=== PATIENT | female | born 1965 | race Two or more races ===

== ENCOUNTER 2023-12-31 16:40 | Emergency (ER) | payer OTHER, SELFPAY ==
[2023-12-31 16:49] VITALS: BP 184/97
--- NOTE | 2023-12-31 18:47 | ED.GENMED ---
History of Present Illness
General
Chief Complaint: Skin Surface Trauma
Time Seen by Provider: 12/31/23 18:44
History of Present Illness
History of Present Illness:
TIME OF INITIAL ENCOUNTER: 6:50 PM
HPI: Patient had a crush injury related to window going up crushing the tip of the left ring fingertip. She went to urgent care initially and it was recommended she come in here for further evaluation.
EXAM:
GENERAL: Well appearing in no distress
HEENT: Moist oral mucosa
NEUROLOGIC: Excellent strength all extremities, no obvious coordination deficits
PSYCHIATRIC: Appropriate mental status, normal insight and judgement
EXTREMITIES: Left fourth digit: Her ring has been removed, there is a 1.5 cm horizontal laceration through the nailbed at the midpoint, the cuticle is not interrupted. The laceration extends to the radial aspect.
SKIN: No rash, no lesions
NUMBER AND COMPLEXITY OF PROBLEMS ADDRESSED AT THE ENCOUNTER
� Chronic conditions affecting care: Has had hysterectomy
� Acute Exacerbation and/or Progression of Chronic Illness: This is an acute problem
� Differential Diagnosis includes: Laceration, nailbed injury, finger fracture
AMOUNT AND/OR COMPLEXITY OF DATA TO BE REVIEWED AND ANALYZED
� I performed an independent evaluation of and my interpretation is:
EKG:
CT:
X-rays: X-ray shows comminuted fracture of the tip of the distal phalanx
Laboratory Studies:
Other:
� Review of other/old records: No old records available for review
� Clinical information was obtained by an independent historian: I spoke to family including sister at bedside
� Prescriptions/Medications Considered but not given:
� Further testing considered but not performed:
RISK OF COMPLICATIONS AND/OR MORBIDITY OR MORTALITY OF PATIENT MANAGEMENT
� Social determinants of health affecting care: Is flying to [place] in 2 days
� Discussion with other providers:
� Escalation of care including admission/observation vs risk of discharge considered: I placed a ring block to the affected digit. I then copiously irrigated the wound and placed ChloraPrep. I then recommended and considered
removing the distal aspect of the nailbed to help facilitate closure however the patient and the patient's sister refused. I then placed a suture to the radial aspect of the laceration next to the nailbed. I attempted to place a stitch and even
used electrocautery to go through the nailbed however this was unsuccessful.
ANY OTHER UPDATES:
I reassessed the patient multiple times and I personally placed a splint that was in an extension position to help keep the soft tissue close together
Phy Exam
Physical Exam
Physical Exam:
See HPI
Course
Orders/Labs/Results
Orders:
Orders
12/31/23 16:51
Finger(s)/Thumb 2 View Lt [CR Finger(s)/thumb Min 2 Vw Lt] Urgent
Comment:
Reason For Exam: pain, trauma
Indicate Which Finger:: Ring Finger
12/31/23 20:04
Cephalexin Monohydrate [Keflex] 500 mg PO NOW STA
Vital Signs
Initial and Last Documented VS:
Initial Vital Signs
Temp Pulse Resp BP Pulse Ox
98.3 F 91 18 184/97 96
12/31/23 16:49 12/31/23 16:49 12/31/23 16:49 12/31/23 16:49 12/31/23 16:49
Last Documented Vital Signs
Temp Pulse Resp BP Pulse Ox
98.3 F 91 18 184/97 96
12/31/23 16:49 12/31/23 16:49 12/31/23 16:49 12/31/23 16:49 12/31/23 16:49
Procedures
Laceration Closure
Left Distal Fourth Finger:
Size of Wound in cm: 1.5
Description of Wound Edges: ragged
Preparation: cleaned with saline
Anesthesia: 1% Lidocaine
Revision/Debridement: routine- no revision
Wound exploration: explored to base- no FB
Type of Closure: single layer closure
Skin Closure Material: 4-0 nylon
Number of sutures: 1
Digital Block
Location of injection for digital block: base of digit
Indiction for Digital Block: anesthesia for exam
Type of anesthesia: 1% Lidocaine w/o EPI
Complications: none- good anesthesia
Nail Trepanation/Felon
Method of Drainage: nail cauterized
Sterile dressing applied: Yes
Finger splint applied: Yes
*Critical Care Note
Total Time (30-74mins, 75-104mins- exclusive of procedures): Not Applicable
ED Attending Note
-
Portions of this chart may have been created with voice recognition software.� Occasional wrong word or��sound alike� substitutions may have occurred due to the inherent limitations of voice recognition software.
Discharge Plan
Departure
Patient Disposition: Home (Routine Discharge)
Date of Disposition: 12/31/23
Time of Disposition: 20:04
Patient with high blood pressure during this ER visit?: Yes
Discharge Problem:
Nailbed laceration, finger
Instructions: Common Finger Injuries ED, BLOOD PRESSURE
Prescriptions:
New
cephalexin 500 mg capsule
500 mg PO BID Qty: 10 0RF
Referrals:
Thien Borjas MD [Family Provider] -
Higinio Corrigan MD [Active] - Tomorrow
Activity Restrictions/Additional Instructions:
I recommend that you leave the dressing and splint on through Thursday morning. I recommend that you place a new dressing but try to keep the splint in place. We have given you an additional splint since you will be away. When you change the
dressing, try to keep the finger from moving much to help the healing process. It is currently in a good position. I was unable to place a stitch into the nailbed due to the nail as you did not want me to remove the nail. I did place a stitch
next to the nail. At approximately the 2-week ron, I recommend that you cut the stitch out with scissors or you could go to an urgent care in [facility]. Next dose of antibiotics tomorrow morning. I have given you the contact information for local
orthopedist. The x-rays show comminuted fracture to the total aspect of the finger.
Interventions
Interventions:
*Risk Screen - Suicide Last Done: 12/31/23 17:14
*General Assessment Last Done: 12/31/23 17:14
*Neglect/Abuse Screening Last Done: 12/31/23 17:28
ED- Fall Risk Assessment Last Done: 12/31/23 17:31
*ED COVID-19 Vaccine History Last Done: 12/31/23 17:14
ED-Skin Assessment Last Done: 12/31/23 17:30
Discharge Date and Time
Print Language: FAROESE
[2023-12-31] MEDS: KEFLEX 500 MG PO (20:16)
== END 2023-12-31 20:22 | disposition home or self-care (01) ==
LOC: EMR 16:40
PROVIDERS: EMERGENCY PHYSICIAN Emergency Medicine; FAMILY PHYSICIAN Internal Medicine
DX: S61.315A Laceration without foreign body of left ring finger with damage to nail, initial encounter (principal); W23.0XXA Caught, crushed, jammed, or pinched between moving objects, initial encounter
CPT/HCPCS: 99283; 12001; 73140